=== PATIENT | female | born 1975 | race Caucasian/White ===

== ENCOUNTER → 2024-04-21 19:42 | Outpatient (REF) | payer BC, SELFPAY | LOC: WDC 19:42 | PROVIDERS: ATTENDING PHYSICIAN Physician Assistant Medical | DX: Z12.31 Encounter for screening mammogram for malignant neoplasm of breast (principal) | CPT/HCPCS: 77063; 77067 ==

== ENCOUNTER → 2025-05-12 18:55 | Outpatient (REF) | payer OTHER, SELFPAY | LOC: WDC 18:55 | PROVIDERS: ATTENDING PHYSICIAN Physician Assistant Medical | DX: Z12.31 Encounter for screening mammogram for malignant neoplasm of breast (principal) | CPT/HCPCS: 77063; 77067 ==